=== PATIENT | female | born 1965 ===

== ENCOUNTER → 2018-11-21 | Emergency (ER) | payer OTHER ==
[~2018-11-21] VITALS: Ht 152.4 cm; Wt 81.6 kg
[~2018-11-21] MED LIST: ATORVASTATIN CA10 MG PO; COZAAR50 MG PO; SYNTHROID112 MCG PO; VITAMIN D2000 UNIT PO; ZYRTEC10 M3 PO
== END | disposition home or self-care (01) ==
LOC: ER 09:37
DX: R07.89 Other chest pain (principal)

== ENCOUNTER → 2019-01-04 | Outpatient (CLI) | payer OTHER | END | disposition home or self-care (01) | LOC: SONOGRAMA 01-03 16:37 | DX: D25.9 Leiomyoma of uterus, unspecified (principal) ==